=== PATIENT | male | born 1995 | race Native Hawaiian/Other Pacific Islander ===

== ENCOUNTER 2022-01-01 09:47 | Emergency (ER) | payer BC ==
[~2022-01-01] VITALS: Ht 180.3 cm; Wt 111.1 kg
[2022-01-01 10:58] LABS: PLATELET COUNT 212 K/uL (142-355)
[2022-01-01 11:06] LABS: POTASSIUM 3.5 mmol/L (3.6-5.2)
[2022-01-01 13:15] VITALS: BP 120/80; TEMP 98.1
== END 2022-01-01 13:15 | disposition home or self-care (01) ==
LOC: ED 09:47
PROVIDERS: Emergency Medicine Emergency Medical Services
DX: N20.1 Calculus of ureter (principal); N13.4 Hydroureter
CPT/HCPCS: 80048; 81002; 81015; 85027; 96360; 96374; 96375; 99284; J1885; J2270; J2405